=== PATIENT | female | born 1985 | race Caucasian/White ===

== ENCOUNTER 2017-03-25 16:31 | Emergency (ER) | payer MEDICAID ==
[2017-03-25 18:45] VITALS: BP 118/78
== END 2017-03-25 18:45 | disposition home or self-care (01) ==
LOC: ED 16:31 → EDBD 16:31 → ED 18:45
DX: M25.562 Pain in left knee (principal); S83.005A Unspecified dislocation of left patella, initial encounter; X58.XXXA Exposure to other specified factors, initial encounter; Y93.89 Activity, other specified; Y92.89 Other specified places as the place of occurrence of the external cause; Y99.8 Other external cause status; F31.9 Bipolar disorder, unspecified
CPT/HCPCS: J1885; Q0092